=== PATIENT | female | born 1995 | race Two or more races ===

== ENCOUNTER 2024-10-16 21:22 | Emergency (ER) | payer MEDICAID, SELFPAY ==
[2024-10-16 21:26] VITALS: BP 148/79; PULSE 160; RESP 20; TEMP 36.8; O2SAT 98
--- NOTE | 2024-10-16 21:37 | PD.EDADULT ---
ED General RME/HPI General Chief complaint: Medical Clearance Stated complaint: CORRECTION CLEARANCE Time Seen by Provider: 10/16/24 21:33 Arrival date/time: 10/16/24 21:22 CC: Medical clearance HPI patient presents to the ER via PD, after being arrested for alcohol intoxication the patient denies any street drugs including methamphetamines, PD states the patient was slamming her head against the cage in the back of the car when she caused a laceration to her center forehead. Patient is very dramatic loud obnoxious but not combative or defiant. Related Data Home Medications ?Medication ?Instructions ?Recorded ?Confirmed prenat.vits,mitch,[id number] 1 tab PO QDAY 01/07/20 12/29/21 aspirin 81 mg tablet,delayed 81 mg PO QDAY 12/29/21 12/29/21 release labetalol 200 mg tablet 200 mg PO BID 12/29/21 12/29/21 ursodiol 300 mg capsule 300 mg PO BID PRN Itching 12/29/21 12/29/21 Previous Rx's ?Medication ?Instructions ?Recorded ondansetron 4 mg disintegrating 4 mg PO Q8H PRN nausea and 09/07/21 tablet vomiting #30 tabs ferrous sulfate 325 mg (65 mg 325 mg PO BID #60 tabs 01/10/22 iron) tablet ibuprofen 800 mg tablet 800 mg PO Q8H PRN pain #90 tabs 01/10/22 labetalol 200 mg tablet 200 mg PO BID #90 tabs 01/10/22 ibuprofen 600 mg tablet 600 mg PO Q8H PRN fever or pain 08/04/23 #20 tabs Allergies Allergy/AdvReac Type Severity Reaction Status Date / Time No Known Allergies Allergy Verified 08/04/23 12:43 Review of Systems Review of Systems Narrative Review of Systems: GEN: No fever, no chills, no weight loss EYES: No discharge, no visual changes, no pain HEENT: No ear pain, no congestion, no sore throat PULM: No shortness of breath, no cough, no congestion CV: No chest pain, no dyspnea on exertion, no palpitations GI: No nausea, no vomiting, no diarrhea, no pain, no constipation : No frequency, no urgency, no dysuria MUSC/SKEL: No joint pain, no back pain SKIN: Forehead laceration, no rash PSYCH: No hallucinations, no depression HEME/LYMPH: No easy bleeding or bruising tendencies NEURO: No weakness, no headache Past Medical History Past Medical History NEUROLOGIC: Negative Neurological Disorders CARDIAC: Positive Cardiac Disorders and Hypertension; Negative Myocardial Infarction, Cardiac Arrhythmia, Atrial Fibrillation, Angina, Heart Murmur, Coronary Artery Disease, Atherosclerotic Heart Disease, Peripheral Vascular Disease, Hypercholesterolemia, Aneurysm, Congestive Heart Failure, Congenital Heart Disease, Valvular Heart Disease, Rheumatic Fever, Cardiomyopathy, Edema, Pericarditis, Cellulitis, Deep Vein Thrombosis, Hypotension or Varicose Veins RESPIRATORY: Negative Chronic Obstructive Pulmonary Disease (COPD), Asthma, Bronchitis, Emphysema, Pulmonary Fibrosis, Cystic Fibrosis, Tuberculosis, Pulmonary Embolism or Sleep Apnea GASTROINTESTINAL: Negative Gastrointestinal Disorders, Hepatitis or Colorectal Cancer GENITOURINARY: Negative Genitourinary Disorders, Renal Disease or Prostate Cancer REPRODUCTIVE: Positive Previous Pregnancies; Negative Breast Cancer, Genital Herpes, Gonorrhea, Syphilis or Testicular Cancer MUSCULOSKELETAL: Negative Musculoskeletal Disorders, Muscular Dystrophy, Myasthenia Gravis, Marfan's Syndrome, Bone Cancer, Arthritis, Rheumatoid Arthritis, Osteoporosis, Degenerative Disk Disease, Gout, Scoliosis, Carpal Tunnel Syndrome, Fibromyalgia, Fractures, Degenerative Joint Disease, Osteomyelitis or Poliovirus ENT: Negative Cataracts ENDOCRINE: Negative Endocrine Disorders, Diabetes Mellitus Type 1 or Diabetes Mellitus Type 2 HEMATOLOGIC: Negative Blood Disorders OTHER HISTORY: Positive Hospitalization; Negative Autoimmune Disease, Down Syndrome, Developmental Delay, Shingles, Falls, Blood Transfusions, Blood Transfusion Reaction, Anesthesia Reactions, Organ Transplant, Chemotherapy, Radiation Therapy, Hyperbaric Therapy, MRSA, VRSA, Human Immunodeficiency Virus (HIV), Chicken Pox, Measles, Mumps, Rubella (Maltese Measles), Pertussis, Clostridium Difficile, Cancer, Breast Cancer, Cervical Cancer, Colorectal Cancer, Lung Cancer, Ovarian Cancer, Prostate Cancer or Testicular Cancer Family History FAMILY HISTORY: Positive Family Cardiac Disorders and Family Cancer; Negative Family Psychiatric Problems, Family Respiratory Disorders or Family Gastrointestinal Problems Surgical History SURGICAL: Negative Cardiac Surgery, Open Heart Surgery, Coronary Artery Bypass Graft, Valve Replacement, Vascular Surgery, Coronary Stent, Cardiac Catheterization, Pacemaker, Angiogram, Auto Implanted Cardiovert Defib, Carotid Endarterectomy, Endocrine Surgery, Thyroidectomy, Ear Surgery, Tympanostomy Tube, Eye Surgery, Nose Surgery, Oral Surgery, Tonsillectomy, Adenoidectomy, Cochlear Implant, Corneal Transplant, Throat Surgery, Abdominal Surgery, Tracheostomy, Gastric Bypass Surgery, Gastrostomy, Bowel Surgery, Nephrectomy, Transurethral Resection, Joint Replacement, Amputation, Open Reduction Internal Fixation, Arthroscopy, Neurologic Surgery, Brain Shunt, Mastectomy, Lumpectomy, Hysterectomy, Tubal Ligation, Section or Organ Transplant Social History SMOKING STATUS: Never smoker SUBSTANCE USE: marijuana ED Exam Narrative Physical exam: [General: Obese appears not in any acute distress Head small center forehead hematoma with a small 1 cm full-thickness horizontal laceration otherwise no other step-off hematoma induration ulceration or crepitus. HEENT: Eyes pupils are PERRLA EOMs intact mouth pink moist membranes uvula is midline swallow symmetrical phonation is normal within acceptable limits Neck is supple nontender Chest equal chest rise nontender to palpation Respiratory: Clear to auscultation no wheezes crackles or rubs CV: Rate rhythm is regular no murmurs rubs or clicks Abdomen is distended secondary to body habitus soft nontender no masses positive bowel sounds all 4 quadrants Back: No CVA tenderness no spinous process tenderness from cervical spine thoracic and lumbar spine Skin: Intact no petechiae rash induration ulceration or crepitus Extremities: Moving all extremity against resistance cap refill less than 2 seconds neurosensory intact Neuro: Awake alert oriented x2, person and place, verbose using foul language, Glascow coma 15 no focal deficits] Course Course Course Narrative: At 2158, heart rate decreased to 120 without any intervention at this time comfortable discharging the patient back to skilled nursing. Quality Measures none Vital Signs Vital signs: Vital Signs Temperature 98.2 F 10/16/24 21:26 Pulse Rate 160 H 10/16/24 21:26 Respiratory Rate 20 10/16/24 21:26 Blood Pressure 148/79 H 10/16/24 21:26 Pulse Oximetry (%) 98 10/16/24 21:26 Oxygen Delivery Method Room Air 10/16/24 21:26 PROCEDURES: Procedure Comment Site clean, site approximated with Dermabond and Steri-Strips without complication patient tolerated the procedure well. 1 cm forehead laceration. Discharge Plan Plan Patient Disposition: Longterm/Court/Law Patient condition on transfer: Stable Prescriptions/Referrals Prescriptions/Med Rec: No Action prenat.vits,mitch,[id number]-[id number] Tablet 1 tab PO QDAY labetalol 200 mg tablet 200 mg PO BID Qty: 90 0RF ibuprofen 800 mg tablet 800 mg PO Q8H PRN (Reason: pain) Qty: 90 0RF ferrous sulfate 325 mg (65 mg iron) tablet 325 mg PO BID Qty: 60 0RF ondansetron 4 mg tablet,disintegrating 4 mg PO Q8H PRN (Reason: nausea and vomiting) Qty: 30 0RF labetalol 200 mg tablet 200 mg PO BID aspirin 81 mg tablet,delayed release (DR/EC) 81 mg PO QDAY Patient Comments: TAKE 1 TABLET BY MOUTH EVERY DAY ursodiol 300 mg capsule 300 mg PO BID PRN (Reason: Itching) Patient Comments: TAKE 1 CAPSULE BY MOUTH TWICE A DAY ibuprofen 600 mg tablet 600 mg PO Q8H PRN (Reason: fever or pain) Qty: 20 0RF Referrals: No Primary/Family,Physician [Primary Care Provider] - In 1 week Problem List Clinical Impression: Medical clearance for incarceration, Forehead laceration, Tachycardia Patient/Caregiver Discharge Instructions Education Materials: ED Laceration: All Closures Print Language: Lithuanian 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
[2024-10-16 21:59] VITALS: PULSE 120; RESP 18; O2SAT 100
== END 2024-10-16 22:17 ==
PROVIDERS: Emergency Provider Emergency Medicine
DX: Z02.89 Encounter for other administrative examinations (principal); S01.81XA Laceration without foreign body of other part of head, initial encounter; R00.0 Tachycardia, unspecified; W22.8XXA Striking against or struck by other objects, initial encounter; Y92.810 Car as the place of occurrence of the external cause
CPT/HCPCS: 12011; 99282

== ENCOUNTER 2024-11-23 16:54 | Emergency (ER) | payer MEDICAID, SELFPAY ==
[2024-11-23 16:55] VITALS: BMI 35.1
[2024-11-23 17:24] VITALS: BP 140/84; PULSE 68; RESP 18; TEMP 37.2; O2SAT 99
--- NOTE | 2024-11-23 17:31 | XR_ITS ---
EXAMINATION: Ankle, left 3 views . Technique: Ankle AP, oblique, lateral 3 views Date and time of exam: November 23, 2024 1733 hrs. Indications: Twisting injury to the ankle today, ankle pain. Findings: No fracture or dislocation. No foreign body Impression: No fracture or dislocation.
--- NOTE | 2024-11-23 17:31 | XR_ITS ---
Examination: Foot, left, 3 views Technique: AP, oblique, lateral views foot, 3 views Date and time of exam: November 21, 2024, 1733 hrs. Indications: Twisting injury to the foot today, foot pain. Findings: Soft tissue swelling dorsum of the foot No acute fracture No dislocation No foreign body Impression: No acute fracture
--- NOTE | 2024-11-23 17:36 | PD.EDRME ---
Rapid Medical Screening Exam RME Arrival date/time: 11/23/24 16:54 29-year-old female presents to the emergency department today stating she twisted her right ankle yesterday reports right foot and ankle pain at this time Chief Complaint: Ankle/Foot Injury Vital signs: Vital Signs Temperature 99 F 11/23/24 17:24 Pulse Rate 68 11/23/24 17:24 Respiratory Rate 18 11/23/24 17:24 Blood Pressure 140/84 H 11/23/24 17:24 Pulse Oximetry (%) 99 11/23/24 17:24 Oxygen Delivery Method Room Air 11/23/24 17:24
--- NOTE | 2024-11-23 18:26 | PD.EDANKLE ---
Lower Extremity Injury RME/HPI General Chief Complaint: Ankle/Foot Injury Stated Complaint: SPRAINED L ANKLE Time Seen by Provider: 11/23/24 17:55 Arrival date/time: 11/23/24 16:54 RME / HPI RME / HPI Narrative: 11/23/24 16:54 29-year-old female presents to the emergency department today stating she twisted her right ankle yesterday reports right foot and ankle pain at this time DR. 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 Patient reports painful weight bearing and occurred abrasions to the medial inner aspect of the left ankle and distal dorsal aspect of the left distal dorsal foot. Tetanus is outdated. PMH, PSHx, and social history are unremarkable. Related Data Home Medications ?Medication ?Instructions ?Recorded ?Confirmed prenat.vits,mitch,[id number] 1 tab PO QDAY 01/07/20 12/29/21 aspirin 81 mg tablet,delayed 81 mg PO QDAY 12/29/21 12/29/21 release labetalol 200 mg tablet 200 mg PO BID 12/29/21 12/29/21 ursodiol 300 mg capsule 300 mg PO BID PRN Itching 12/29/21 12/29/21 Previous Rx's ?Medication ?Instructions ?Recorded ondansetron 4 mg disintegrating 4 mg PO Q8H PRN nausea and 09/07/21 tablet vomiting #30 tabs ferrous sulfate 325 mg (65 mg 325 mg PO BID #60 tabs 01/10/22 iron) tablet ibuprofen 800 mg tablet 800 mg PO Q8H PRN pain #90 tabs 01/10/22 labetalol 200 mg tablet 200 mg PO BID #90 tabs 01/10/22 ibuprofen 600 mg tablet 600 mg PO Q8H PRN fever or pain 08/04/23 #20 tabs acetaminophen 300 mg-codeine 15 mg 1 tab PO Q8H PRN pain #16 tabs 11/23/24 tablet ibuprofen 600 mg tablet 600 mg PO TID PRN pain / swelling 11/23/24 #10 tabs Allergies Allergy/AdvReac Type Severity Reaction Status Date / Time No Known Allergies Allergy Verified 11/23/24 17:05 Review of Systems Review of Systems Systems Reviewed: All systems reviewed, normal except as documented Past Medical History Past Medical History CARDIAC: Positive Cardiac Disorders and Hypertension REPRODUCTIVE: Positive Previous Pregnancies OTHER HISTORY: Positive Hospitalization Family History FAMILY HISTORY: Positive Family Cardiac Disorders and Family Cancer Social History SUBSTANCE USE: marijuana ED Exam Narrative Physical exam: GEN. APPEARANCE: The patient is alert awake oriented X-3 in no apparent distress, lying down comfortably, does not look ill/toxic. Patient has good eye contact. Patient is cooperative. VITALS: All vitals were reviewed and the pulse ox is 99% on room air which is normal according to my interpretation. HEENT: Normocephalic, atraumatic. Pupils are equal and reactive. Oral mucosa is moist. Patent Nares NECK: Supple, nontender, no thyromegaly, no meningismus, no JVD, no step offs CHEST: Symmetrical, atraumatic, and with equal expansion , Nontender on palpation no deformity and no crepitus. CARDIOVASCULAR: Heart regular rhythm no murmur or gallop rub or extra beats. LUNGS: Clear to auscultation bilaterally with symmetrical chest rise. No laboring tachypnea or wheezing. No intercostal subcostal retraction. No rales and no rhonchi. ABDOMEN: Soft, flat, nontender to palpation, no guarding or rebound tenderness. There are no abnormal masses palpated. Active and normal bowel sounds. EXTREMITIES: Left ankle demonstrates 2+ edema at the medial malleolus. Tenderness to the deltoid ligament, +/- valgus deformity, negative varus, negative anterior/posterior drop, distal function intact. Left foot edema, tenderness over distal aspect of dorsal 1st metatarsal, distal function intact. Patient is able to move all 4 extremities well, with full ROM and good CSM. SKIN: Warm and dry, no jaundice or rashes noted. MUSCULOSKELETAL: No lubar or midline bony tenderness. There is no CVA tenderness. No paraspinal muscle spasm or tenderness. NEURO: Patient is CHASE x 4, Cranial nerves II through XII grossly intact. There is no focal neurologic deficits noted. GCS is 15, PNS and LEARNING AND DEVELOPMENT COORDINATOR appear grossly intact. PSYCHIATRIC: Patient is in normal mood and affect, cooperative, no SI or HI or hallucinations. Course Quality Measures none Orders Category Date Time Status Crutches .NOW Care 11/23/24 18:34 Active iris wrap [Splint / Immobilizer] STAT Care 11/23/24 18:34 Active XR ankle comp LT min 3V Stat Exams 11/23/24 17:31 Completed XR foot comp LT min 3V Stat Exams 11/23/24 17:31 Completed Ibuprofen Tab [Motrin Tab] Med 11/23/24 18:37 Discontinued 600 mg PO X1 ONE TET,DIP/PERT AC (Adult)-Tdap [Boostrix Adult (Tdap) Med 11/23/24 18:42 Discontinued Vacc] 0.5 ml IMI .ONCE ONE Vital Signs Vital signs: Vital Signs Temperature 99 F 11/23/24 17:24 Pulse Rate 68 11/23/24 17:24 Respiratory Rate 18 11/23/24 17:24 Blood Pressure 140/84 H 11/23/24 17:24 Pulse Oximetry (%) 99 11/23/24 17:24 Oxygen Delivery Method Room Air 11/23/24 17:24 Extremity Injury, Lower MDM Narrative MDM Narrative:: Scribe Attestation: Jennifer Grnat am scribing for and in the presence of Dr. Thomas. Provider Notation: Although this document has been carefully reviewed, there may still be some phonetic and other typographical errors. These errors are purely grammatical due to imperfections in the software program and should not be construed in any way to compromise the substance of the patient's medical care during this visit. Patient endured injury to left ankle/foot as she stepped over a log 24 [employer] SALES [employer]. Patient reports painful weight bearing and occurred abrasions to the medial inner aspect of the left ankle and distal dorsal aspect of the left distal dorsal foot. Please see PE findings. X-rays of the foot and left ankle unremarkable. Abrasions were cleansed and topical Bacitracin added. Immobilizer to the left ankle applied. Crutches were issued, Tetanus updated, and Motrin given. Patient instructed on low-weight bearing for the next 5 days, and begin adding weight as tolerated. Patient advised to follow-up with PMD in 1-2 weeks and to return if worsening. Patient data External records reviewed:: [facility] previous records (Reviewed prior ED records from 10/16/24. Patient was seen for Forehead laceration.) Clinical information provided by:: patient Social determinants that could affect healthcare access:: substance use (Marijuana) Patient has the following chronic illnesses:: HTN How is presenting disease/condition affected by chronic disease/condition?: uneffected by Evaluation data The following diagnostics were reviewed and interpreted by me:: radiology exam(s) Lab and/or radiology exams considered but not ordered:: None Interpretation Summary: RADIOLOGY Foot X-Ray: Findings: Soft tissue swelling dorsum of the foot No acute fracture No dislocation No foreign body Impression: No acute fracture Ankle X-Ray: Findings: No fracture or dislocation. No foreign body Impression: No fracture or dislocation. Medications / Prescriptions Medications or Prescriptions considered but not ordered:: None Medication administrations:: Medication Administration History Discontinued Medications Diphtheria/Tetanus/Acell Pertussis (Diphth,Pertuss(Acell),Tet Vac 0.5 Ml Syr- Adult) 0.5 ml IMi .ONCE ONE Stop: 11/23/24 18:43 Ibuprofen (Ibuprofen Tab 600 Mg Tablet) 600 mg PO X1 ONE Stop: 11/23/24 18:38 See above if any Consultations Consultation(s) initiated? (list below): No Diagnosis Extremity Injury, Lower Differential Diagnosis: ankle sprain and strain, acute internal derangement of knee, puncture wound of foot, fracture of toe and ankle fracture Most likely diagnosis given after review of the tests above:: Second degree ankle sprain, Multiple abrasions, Multiple contusions Admission Indicated Admission indicated?: not indicated Explain why admission is indicated or not indicated:: Patient does not meet admission criteria. Admission Request Was there a request for admission?: No Disposition Plan Disposition Plan: Discharge Discharge Attestation Discharge Attestation: The patient and all family members were given an opportunity to ask questions and understood the discharge instructions. Discharge instructions specifically effects, indications for sooner follow up or return to the emergency department, and the expected course of current diagnosis. Patient condition: Stable Discharge Plan Plan Patient Disposition: HOME (Self Care) Discharge Disposition comment: Stable Prescriptions/Referrals Prescriptions/Med Rec: New acetaminophen-codeine 300-15 mg tablet 1 tab PO Q8H PRN (Reason: pain) Qty: 16 0RF ibuprofen 600 mg tablet 600 mg PO TID MDD 3 tabs PRN (Reason: pain / swelling) Qty: 10 0RF No Action prenat.vits,mitch,vxm-[id number]-cptuy Tablet 1 tab PO QDAY labetalol 200 mg tablet 200 mg PO BID Qty: 90 0RF ibuprofen 800 mg tablet 800 mg PO Q8H PRN (Reason: pain) Qty: 90 0RF ferrous sulfate 325 mg (65 mg iron) tablet 325 mg PO BID Qty: 60 0RF ondansetron 4 mg tablet,disintegrating 4 mg PO Q8H PRN (Reason: nausea and vomiting) Qty: 30 0RF labetalol 200 mg tablet 200 mg PO BID aspirin 81 mg tablet,delayed release (DR/EC) 81 mg PO QDAY Patient Comments: TAKE 1 TABLET BY MOUTH EVERY DAY ursodiol 300 mg capsule 300 mg PO BID PRN (Reason: Itching) Patient Comments: TAKE 1 CAPSULE BY MOUTH TWICE A DAY ibuprofen 600 mg tablet 600 mg PO Q8H PRN (Reason: fever or pain) Qty: 20 0RF Referrals: Ximena Mitchell PA-C [Primary Care Provider, Family Practice] - In 1 week Problem List Clinical Impression: Second degree ankle sprain, Multiple abrasions, Multiple contusions Patient/Caregiver Discharge Instructions Discharge Activity: other Other Activity Instructions:: No weight bearing for 5 days Education Materials: Understanding Ankle Sprain, Treating Ankle Sprains Print Language: Mohawk Stand Alone Forms: [facility] Award Info., Patient Portal Info Letter
[2024-11-23] MEDS: IBUPROFEN TAB 600 MG TABLET PO (19:12)
[2024-11-23] MEDS: DIPHTH,PERTUSS(ACELL),TET VAC 0.5 ML SYR- ADULT IMi (19:12)
== END 2024-11-23 19:24 | disposition home or self-care (01) ==
PROVIDERS: Emergency Provider Emergency Medicine; PCP Physician Assistant
DX: S93.402A Sprain of unspecified ligament of left ankle, initial encounter (principal); X50.1XXA Overexertion from prolonged static or awkward postures, initial encounter; S90.512A Abrasion, left ankle, initial encounter; Z23 Encounter for immunization
CPT/HCPCS: 29515; 73610; 73630; 90471; 90715; 99284; A9270

== ENCOUNTER 2025-02-19 05:55 | Emergency (ER) | payer MEDICAID, SELFPAY ==
[2025-02-19 05:56] VITALS: BMI 35.3
[2025-02-19 06:02] VITALS: BP 145/99; PULSE 95; RESP 18; TEMP 37.1; O2SAT 99
--- NOTE | 2025-02-19 06:26 | XR_ITS ---
Examination: Retroperitoneal ultrasound, complete Technique: Multiple high resolution grayscale images of the retroperitoneum obtained, including kidneys and bladder. Exam date and time: February 19, 2025, 0728 hours INDICATIONS: Urinary tract infections and bilateral flank pain beginning 1 week ago FINDINGS: Right kidney 11.2 cm renal cortex 1.4 cm Left kidney 12.0 cm renal cortex 1.7 cm Mild left hydronephrosis No renal calculi No bladder mass or bladder calculi Bladder prevoid volume 119 cc IMPRESSION: Mild left hydronephrosis No renal calculi
[2025-02-19 07:02] LABS: Basophils # (Auto) 0.0 Thou/mm3 (0.0-0.2); Basophils % (Auto) 0 % (0-2.5); Eosinophils # (Auto) 0.1 Thou/mm3 (0.0-0.5); Eosinophils % (Auto) 1 % (0-10); Hematocrit 35.9 % (36.0-46.0); Hemoglobin 11.8 g/dL (12.0-16.0); Immature Granulocytes Auto 0.04 Thou/mm3 (0.00-0.00); Lymphocytes # (Auto) 1.4 Thou/mm3 (1.0-4.8); Lymphocytes % (Auto) 13 % (10-50); Mean Corpuscular HGB Conc 32.9 g/dl (31.0-37.0); Mean Corpuscular Hemoglobin 26.3 pg (25.0-35.0); Mean Corpuscular Volume 80 fL (80-100); Monocytes # (Auto) 0.2 Thou/mm3 (0.0-0.8); Monocytes % (Auto) 2 % (0-12); Neutrophils # (Auto) 9.4 Thou/mm3 (1.8-7.7); Neutrophils % (Auto) 85 % (37-80); Nucleated Red Blood Cell # 0.00 Thou/mm3 (0.00-0.00); Nucleated Red Blood Cell % 0 /100 WBC (0); Platelet Count 286 Thou/mm3 (140-440); RDW Standard Deviation 45.1 fL (36.4-46.3); Red Blood Count 4.49 Miln/mm3 (4.00-5.20); White Blood Count 11.1 Thou/mm3 (3.6-11.0)
[2025-02-19 07:19] LABS: Alanine Aminotransferase 72 U/L (10-49); Albumin, Serum 4.6 gm/dL (3.5-5.0); Albumin/Globulin Ratio 1.8 (1.2-2.2); Alkaline Phosphatase 124 U/L (46-116); Anion Gap 9 (7-16); Aspartate Amino Transferase 51 U/L (0-34); BUN/Creatinine Ratio 20 Ratio (12-20); Bilirubin,Total 0.5 mg/dL (0.3-1.2); Blood Urea Nitrogen 16 mg/dL (9-23); Calcium 9.4 mg/dL (8.3-10.6); Calcium (Corrected) 9.4 mg/dL (8.5-10.1); Carbon Dioxide 26.1 mMol/L (20.0-31.0); Chloride 106 mMol/L (98-107); Creatinine (Component) 0.8 mg/dL (0.6-1.3); Estimated Creatinine Clearance 106.6 mL/min (>60); Globulin 2.5 gm/dL (2.3-3.5); Glucose 108 mg/dL (74-106); Lipase 36 U/L (12-53); Osmolality,Calculated 283 (275-295); Potassium 4.6 mMol/L (3.4-5.1); Sodium 141 mMol/L (136-145); Total Protein 7.1 gm/dL (5.7-8.2); eGFR > 60 See Note
[2025-02-19 07:24] LABS: Collection Type, Urine Clean Catch
[2025-02-19 07:43] LABS: Bilirubin,Urine Negative (Negative); Blood,Urine Trace (Negative); Clarity,Urine Turbid (Clear/Hazy); Color,Urine Lt-Yellow (Lt Yel-Yel); Glucose, Urine Negative (Negative); Ketones,Urine Negative (Negative); Leukocyte Esterase,Urine Positive (Negative); Nitrite,Urine Negative (Negative); PH,Urine 6.0 (5.0-7.0); Protein,Urine Negative (Neg - Trace); RBC,Urine 7 /hpf (0-3); Specific Gravity,Urine 1.011 (1.001-1.035); Squamous Epithelial Cell,Urine 1 /hpf (0-5); Urobilinogen,Urine Negative mg/dL (0.0-1.0); WBC,Urine 66 /hpf (0-5)
[2025-02-19 07:44] LABS: HCG Qualitative,Urine Negative
--- NOTE | 2025-02-19 08:27 | PD.EDBACK ---
ED Back Injury Pain RME/HPI General Chief Complaint: Back Pain/Injury Stated Complaint: BILATERAL FLANK PAIN Time Seen by Provider: 02/19/25 06:16 Source: patient Arrival date/time: 02/19/25 05:55 29-year-old female with no known medical history presents to the emergency room with a chief complaint of dysuria bilateral flank pain x 1 week. Patient states she is on antibiotics for UTI and her symptoms of gotten worse. Mode of arrival: ambulatory Limitations: no limitations Related Data Home Medications ?Medication ?Instructions ?Recorded ?Confirmed prenat.vits,mitch,[id number] 1 tab PO QDAY 01/07/20 12/29/21 aspirin 81 mg tablet,delayed 81 mg PO QDAY 12/29/21 12/29/21 release labetalol 200 mg tablet 200 mg PO BID 12/29/21 12/29/21 ursodiol 300 mg capsule 300 mg PO BID PRN Itching 12/29/21 12/29/21 Previous Rx's ?Medication ?Instructions ?Recorded ondansetron 4 mg disintegrating 4 mg PO Q8H PRN nausea and 09/07/21 tablet vomiting #30 tabs ferrous sulfate 325 mg (65 mg 325 mg PO BID #60 tabs 01/10/22 iron) tablet ibuprofen 800 mg tablet 800 mg PO Q8H PRN pain #90 tabs 01/10/22 labetalol 200 mg tablet 200 mg PO BID #90 tabs 01/10/22 ibuprofen 600 mg tablet 600 mg PO Q8H PRN fever or pain 08/04/23 #20 tabs acetaminophen 300 mg-codeine 15 mg 1 tab PO Q8H PRN pain #16 tabs 11/23/24 tablet ibuprofen 600 mg tablet 600 mg PO TID PRN pain / swelling 11/23/24 #10 tabs sulfamethoxazole 800 1 tab PO BID #14 tabs 02/19/25 mg-trimethoprim 160 mg tablet (Bactrim DS) Allergies Allergy/AdvReac Type Severity Reaction Status Date / Time No Known Allergies Allergy Verified 11/23/24 17:05 Review of Systems Review of Systems Systems Reviewed: All systems reviewed, normal except as documented Constitutional Constitutional: Reports system reviewed and no additional complaints, except as documented, Denies fatigue, Denies fever(s), Denies headache(s) and Denies weakness Eyes Eyes: Reports system reviewed and no additional complaints, except as documented, Denies blurry vision and Denies change in vision ENT Ears, Nose, Mouth, and Throat: Reports system reviewed and no additional complaints, except as documented, Denies otalgia, Denies headache(s), Denies nasal congestion, Denies throat swelling and Denies vertigo Cardiovascular Cardiovascular: Reports system reviewed and no additional complaints, except as documented, Denies chest pain, Denies dyspnea and Denies dyspnea on exertion Respiratory Respiratory: Reports system reviewed and no additional complaints, except as documented, Denies chest congestion, Denies cough, Denies dyspnea, Denies dyspnea on exertion and Denies wheezing Gastrointestinal Gastrointestinal: Reports system reviewed and no additional complaints, except as documented, Denies abdominal pain, Denies cramping, Denies nausea and Denies vomiting Genitourinary Genitourinary: Reports system reviewed and no additional complaints, except as documented and Reports dysuria Musculoskeletal Musculoskeletal: Reports system reviewed and no additional complaints, except as documented and Reports back pain Integumentary/Breasts Skin/Breast: Reports system reviewed and no additional complaints, except as documented and Denies wounds Neurologic Neurologic: Reports system reviewed and no additional complaints, except as documented, Denies confusion, Denies headache(s), Denies lack of coordination, Denies vertigo and Denies weakness Psychiatric Psychiatric: Reports system reviewed and no additional complaints, except as documented, Denies anxiety, Denies confusion, Denies depression, Denies paranoia, Denies suicidal ideation and Denies tactile hallucinations Endocrine Endocrine: Reports system reviewed and no additional complaints, except as documented and Denies fatigue Hematologic/Lymphatic Hematologic/Lymphatic: Reports system reviewed and no additional complaints, except as documented and Denies lymphadenopathy Allergic/Immunologic Allergic/Immunologic: Reports system reviewed and no additional complaints, except as documented, Denies throat swelling, Denies urticaria and Denies wheezing Past Medical History Past Medical History NEUROLOGIC: Negative Neurological Disorders CARDIAC: Positive Cardiac Disorders and Hypertension; Negative Myocardial Infarction, Cardiac Arrhythmia, Atrial Fibrillation, Angina, Heart Murmur, Coronary Artery Disease, Atherosclerotic Heart Disease, Peripheral Vascular Disease, Hypercholesterolemia, Aneurysm, Congestive Heart Failure, Congenital Heart Disease, Valvular Heart Disease, Rheumatic Fever, Cardiomyopathy, Edema, Pericarditis, Cellulitis, Deep Vein Thrombosis, Hypotension or Varicose Veins RESPIRATORY: Negative Chronic Obstructive Pulmonary Disease (COPD), Asthma, Bronchitis, Emphysema, Pulmonary Fibrosis, Cystic Fibrosis, Tuberculosis, Pulmonary Embolism or Sleep Apnea GASTROINTESTINAL: Negative Gastrointestinal Disorders, Hepatitis or Colorectal Cancer GENITOURINARY: Negative Genitourinary Disorders, Renal Disease or Prostate Cancer REPRODUCTIVE: Positive Previous Pregnancies; Negative Breast Cancer, Genital Herpes, Gonorrhea, Syphilis or Testicular Cancer MUSCULOSKELETAL: Negative Musculoskeletal Disorders, Muscular Dystrophy, Myasthenia Gravis, Marfan's Syndrome, Bone Cancer, Arthritis, Rheumatoid Arthritis, Osteoporosis, Degenerative Disk Disease, Gout, Scoliosis, Carpal Tunnel Syndrome, Fibromyalgia, Fractures, Degenerative Joint Disease, Osteomyelitis or Poliovirus ENT: Negative Cataracts ENDOCRINE: Negative Endocrine Disorders, Diabetes Mellitus Type 1 or Diabetes Mellitus Type 2 HEMATOLOGIC: Negative Blood Disorders OTHER HISTORY: Positive Hospitalization; Negative Autoimmune Disease, Down Syndrome, Developmental Delay, Shingles, Falls, Blood Transfusions, Blood Transfusion Reaction, Anesthesia Reactions, Organ Transplant, Chemotherapy, Radiation Therapy, Hyperbaric Therapy, MRSA, VRSA, Human Immunodeficiency Virus (HIV), Chicken Pox, Measles, Mumps, Rubella ([place] Measles), Pertussis, Clostridium Difficile, Cancer, Breast Cancer, Cervical Cancer, Colorectal Cancer, Lung Cancer, Ovarian Cancer, Prostate Cancer or Testicular Cancer Family History FAMILY HISTORY: Positive Family Cardiac Disorders and Family Cancer; Negative Family Psychiatric Problems, Family Respiratory Disorders or Family Gastrointestinal Problems Surgical History SURGICAL: Negative Cardiac Surgery, Open Heart Surgery, Coronary Artery Bypass Graft, Valve Replacement, Vascular Surgery, Coronary Stent, Cardiac Catheterization, Pacemaker, Angiogram, Auto Implanted Cardiovert Defib, Carotid Endarterectomy, Endocrine Surgery, Thyroidectomy, Ear Surgery, Tympanostomy Tube, Eye Surgery, Nose Surgery, Oral Surgery, Tonsillectomy, Adenoidectomy, Cochlear Implant, Corneal Transplant, Throat Surgery, Abdominal Surgery, Tracheostomy, Gastric Bypass Surgery, Gastrostomy, Bowel Surgery, Nephrectomy, Transurethral Resection, Joint Replacement, Amputation, Open Reduction Internal Fixation, Arthroscopy, Neurologic Surgery, Brain Shunt, Mastectomy, Lumpectomy, Hysterectomy, Tubal Ligation, Section or Organ Transplant Social History SMOKING STATUS: Never smoker SUBSTANCE USE: marijuana ED Exam General Limitations: Present no limitations General appearance: Present alert and in no apparent distress Head Head exam: Present atraumatic Eye Eye exam: Present normal appearance, PERRL and EOMI ENT ENT exam: Present normal exam, normal oropharynx and mucous membranes moist Neck Neck exam: Present normal inspection, full ROM and trachea midline Chest Chest inspection: Present normal inspection and symmetric chest wall rise Respiratory Respiratory exam: Present normal lung sounds bilaterally Cardiovascular Cardiovascular exam: Present regular rate, normal rhythm and normal heart sounds Abdominal Exam Abdominal exam: Present soft and normal bowel sounds; Absent tenderness Abdominal tenderness: Absent RLQ or LLQ Extremities Exam Extremities exam: Present normal inspection and full ROM Back Exam Back exam: Present normal inspection, full ROM, CVA tenderness (R), CVA tenderness (L) and vertebral tenderness Neurological Exam Neurological exam: Present alert, oriented X3 and CN II-XII intact Psychiatric Psychiatric exam: Present normal affect and normal mood Skin Skin exam: Present warm, dry, intact and normal color Course Quality Measures none Orders Category Date Time Status US renal BI Stat Exams 02/19/25 06:26 Completed CBC Stat Lab 02/19/25 06:30 Completed CMP [Comprehensive Metabolic Panel] Stat Lab 02/19/25 06:30 Completed HCG Qualitative,Urine Stat Lab 02/19/25 06:55 Completed Lipase Stat Lab 02/19/25 06:30 Completed UA [Urinalysis] Stat Lab 02/19/25 06:55 Completed Urine Culture Stat Lab 02/19/25 06:55 Received Vital Signs Vital signs: Vital Signs Temperature 98.8 F 02/19/25 06:02 Pulse Rate 95 02/19/25 06:02 Respiratory Rate 18 02/19/25 06:02 Blood Pressure 145/99 H 02/19/25 06:02 Pulse Oximetry (%) 99 02/19/25 06:02 Oxygen Delivery Method Room Air 02/19/25 06:02 Back Pain / Injury MDM Narrative MDM Narrative:: 29-year-old female with no known medical history presents to the emergency room with a chief complaint of dysuria bilateral flank pain x 1 week. Patient states she is on antibiotics for UTI and her symptoms of gotten worse. Patient is hemodynamically stable and in no apparent distress Physical examination shows bilateral CVA tenderness with palpation. The patient is afebrile not tachycardic not tachypneic not vomiting CBC CMP were negative for any acute findings. Ultrasound of the kidneys were negative for any pyelonephritis Urinalysis showed a UTI Patient was discharged and educated to follow-up with primary care provider in the next 24 to 48 hours and return to the emergency room for any evidence of worsening signs or symptoms Patient data External records reviewed:: [facility] previous records Clinical information provided by:: patient Social determinants that could affect healthcare access:: none Patient has the following chronic illnesses:: No chronic illness How is presenting disease/condition affected by chronic disease/condition?: no chronic disease Evaluation data The following diagnostics were reviewed and interpreted by me:: lab results and radiology exam(s) Lab and/or radiology exams considered but not ordered:: Labs and radiology exams considered and ordered Interpretation Summary: Renal ultrasound-INDINGS: Right kidney 11.2 cm renal cortex 1.4 cm Left kidney 12.0 cm renal cortex 1.7 cm Mild left hydronephrosis No renal calculi No bladder mass or bladder calculi Bladder prevoid volume 119 cc IMPRESSION: Mild left hydronephrosis No renal calculi Medications / Prescriptions Medications or Prescriptions considered but not ordered:: No medication given Medication administrations:: No medication given Consultations Consultation(s) initiated? (list below): No Diagnosis Differential diagnosis back pain/injury: strain of lumbar region, renal colic, pyelonephritis and other Most likely diagnosis given after review of the tests above:: Urinary tract infection Admission Indicated Admission indicated?: not indicated Admission Request Was there a request for admission?: No Disposition Plan Disposition Plan: Discharge Discharge Attestation Discharge Attestation: The patient and all family members were given an opportunity to ask questions and understood the discharge instructions. Discharge instructions specifically effects, indications for sooner follow up or return to the emergency department, and the expected course of current diagnosis. Patient condition: Stable Discharge Plan Plan Patient Disposition: HOME (Self Care) Discharge Disposition comment: Stable Prescriptions/Referrals Prescriptions/Med Rec: New sulfamethoxazole-trimethoprim [Bactrim DS] 800-160 mg tablet 1 tab PO BID Qty: 14 0RF No Action prenat.vits,mitch,[id number] Tablet 1 tab PO QDAY labetalol 200 mg tablet 200 mg PO BID Qty: 90 0RF ibuprofen 800 mg tablet 800 mg PO Q8H PRN (Reason: pain) Qty: 90 0RF ferrous sulfate 325 mg (65 mg iron) tablet 325 mg PO BID Qty: 60 0RF ondansetron 4 mg tablet,disintegrating 4 mg PO Q8H PRN (Reason: nausea and vomiting) Qty: 30 0RF labetalol 200 mg tablet 200 mg PO BID aspirin 81 mg tablet,delayed release (DR/EC) 81 mg PO QDAY Patient Comments: TAKE 1 TABLET BY MOUTH EVERY DAY ursodiol 300 mg capsule 300 mg PO BID PRN (Reason: Itching) Patient Comments: TAKE 1 CAPSULE BY MOUTH TWICE A DAY ibuprofen 600 mg tablet 600 mg PO Q8H PRN (Reason: fever or pain) Qty: 20 0RF acetaminophen-codeine 300-15 mg tablet 1 tab PO Q8H PRN (Reason: pain) Qty: 16 0RF ibuprofen 600 mg tablet 600 mg PO TID MDD 3 tabs PRN (Reason: pain / swelling) Qty: 10 0RF Referrals: Ximena Mitchell PA-C [Primary Care Provider, Family Practice] - In 1 week Problem List Clinical Impression: Urinary tract infection Patient/Caregiver Discharge Instructions Education Materials: ED CYSTITIS Female Adult Additional Instructions: Please follow-up with your primary care provider in the next 24 to 48 hours Your urinalysis showed a urinary tract infection. Your blood work was within normal limits. Your ultrasound of your kidneys were within normal limits For any evidence of worsening signs or symptoms return to the emergency room immediately Print Language: Polish Stand Alone Forms: Shweta Award Info., Work/School Release, Patient Portal Info Letter KENAN/SAYDA Supervising Physician CRYSTAL Supervising Physician:
== END 2025-02-19 10:19 | disposition home or self-care (01) ==
PROVIDERS: Emergency Provider Nurse Practitioner Family; PCP Physician Assistant
DX: N13.6 Pyonephrosis (principal)
CPT/HCPCS: 36415; 76770; 80053; 81001; 81025; 83690; 85025; 87077; 87086; 87186; 99283